=== PATIENT | male | born 1980 ===

== ENCOUNTER 2018-03-24 08:44 | Emergency (ER) | payer OTHER ==
[2018-03-24 08:57] VITALS: O2SAT 100
--- NOTE | 2018-03-24 09:47 | C.PDOC ---
History Of Present Illness 37 year old male presents to the ED for evaluation of right-sided lower back pain that radiates down right leg for one week. Patient was previously evaluated at [facility] for same symptoms, and was instructed to take Tylenol and Motrin. Patient states he has not taken anything because he did not want to buy the medicine. Patient denies fever, chills, dysuria, hematuria, urinary retention, bowel/bladder incontinence, or sensory changes in legs. Time Seen by Provider: 03/24/18 09:04 Chief Complaint (Nursing): Lower Extremity Problem/Injury History Per: Patient History/Exam Limitations: no limitations Onset/Duration Of Symptoms: Days (1 week) Current Symptoms Are (Timing): Still Present Additional History Per: Patient Past Medical History Reviewed: Historical Data, Nursing Documentation, Vital Signs Vital Signs: Last Vital Signs Temp 98 F 03/24/18 08:50 Pulse 79 03/24/18 08:50 Resp 18 03/24/18 08:50 BP 151/105 H 03/24/18 08:50 Pulse Ox 100 03/24/18 08:50 - Medical History PMH: HTN Surgical History: No Surg Hx Family History: States: Unknown Family Hx - Social History Hx Alcohol Use: No Hx Substance Use: No - Immunization History Hx Tetanus Toxoid Vaccination: No Hx Influenza Vaccination: No Hx Pneumococcal Vaccination: No Review Of Systems Genitourinary: Negative for: Dysuria, Incontinence, Hematuria Musculoskeletal: Positive for: Back Pain (right-sided, lower ), Leg Pain (right) Neurological: Negative for: Weakness, Numbness Physical Exam - Physical Exam Appears: Non-toxic, Other (in mild pain ) Skin: Normal Color, Warm, Dry Head: Atraumatic, Normacephalic Eye(s): bilateral: Normal Inspection Oral Mucosa: Moist Neck: Supple Chest: Symmetrical, No Deformity, No Tenderness Cardiovascular: Rhythm Regular, No Murmur Respiratory: Normal Breath Sounds, No Rales, No Rhonchi, No Wheezing Gastrointestinal/Abdominal: Soft, No Tenderness, No Guarding, No Rebound Back: Paraspinal Tenderness (right-sided, lumbar ) Extremity: Normal ROM, No Tenderness, Capillary Refill (less than 2 seconds ), No Deformity, No Swelling Neurological/Psych: Oriented x3, Normal Speech, Normal Cognition Gait: Steady ED Course And Treatment O2 Sat by Pulse Oximetry: 100 (on RA) Pulse Ox Interpretation: Normal Progress Note: Naproxen PO, Flexeril PO, and Prednisone PO given. On reassessment, patient is resting comfortably and reports an improvement in his symptoms. Patient is ambulatory in the ED with a steady gait and is stable for discharge. He will be discharged with Rx for Naproxen, Flexeril and Prednisone and is advised to follow up with his PMD within 1-2 days for further evaluation. Disposition Counseled Patient/Family Regarding: Diagnosis, Need For Followup, Rx Given - Disposition Referrals: [facility] [Outside] Disposition: HOME/ ROUTINE Disposition Time: 10:45 Condition: STABLE Additional Instructions: FOLLOW UP WITH YOUR DOCTOR/CLINIC IN 1-2 DAYS USE MEDICATIONS DIRECTED RETURN TO EMERGENCY ROOM IF SYMPTOMS WORSEN SEGUIR CON HUERTA MDICO / CLNICA EN 1-2 DAVILA UTILICE MEDICAMENTOS SERA SE DIRIGE VUELVA A LA CYNDIE DE EMERGENCIA SI LOS SNTOMAS SE RODRÍGUEZ PROBLEMAS Prescriptions: Cyclobenzaprine [Flexeril] 10 mg PO BID PRN #15 tab PRN Reason: Muscle Spasm Naproxen 375 mg PO BID PRN #20 tablet PRN Reason: pain predniSONE [predniSONE Tab] 40 mg PO DAILY #6 tab Instructions: Sciatica (DC) Forms: [employer] (Latvian), Work Excuse Print Language: PORTUGUESE - POA Present On Arrival: None - Clinical Impression Clinical Impression: Right sided sciatica - Scribe Statement The provider has reviewed the documentation as recorded by the Scribe (Marisol Harvey) Provider Attestation: All medical record entries made by the Scribe were at my direction and personally dictated by me. I have reviewed the chart and agree that the record accurately reflects my personal performance of the history, physical exam, medical decision making, and the department course for this patient. I have also personally directed, reviewed, and agree with the discharge instructions and disposition.
[2018-03-24] MEDS ORDERED: Naproxen 550 mg Tab PO STA (09:49)
[2018-03-24] MEDS ORDERED: Naproxen 550 mg Tab PO ONE (09:55)
[2018-03-24 10:32] VITALS: BP 146/97; PULSE 91; RESP 20; TEMP 98.9
== END 2018-03-24 10:48 | disposition home or self-care (01) ==
LOC: C.ER 08:44
DX: M54.31 Sciatica, right side (principal)